=== PATIENT | male | born 1965 | race Two or more races ===

== ENCOUNTER 2021-01-30 19:42 | Emergency (ER) | payer OTHER ==
[~2021-01-30] VITALS: Ht 172.7 cm; Wt 86.2 kg
[2021-01-30 20:15] LABS: BASOPHILS # (AUTO) 0.2 /CMM (0.0-0.2); BASOPHILS % (AUTO) 2.1 % (0.0-2.0); EOSINOPHILS % (AUTO) 1.8 % (0.0-6.0); HEMATOCRIT 46 % (39-51); HEMOGLOBIN 15.6 g/dL (13.5-17.5); LYMPHOCYTES # (AUTO) 3.6 /CMM (0.8-4.8); LYMPHOCYTES % (AUTO) 44.2 % (20.0-44.0); MEAN CORPUSCULAR HGB CONC 34 g/dl (31.0-36.0); MEAN CORPUSCULAR VOLUME 88 fL (80-96); MONOCYTES # (AUTO) 0.5 /CMM (0.1-1.30); MONOCYTES % (AUTO) 5.7 % (2.0-12.0); NEUTROPHILS # (AUTO) 3.8 /CMM (1.8-8.9); NEUTROPHILS % (AUTO) 46.2 % (43.0-81.0); PLATELET COUNT (AUTO) 265 /CMM (150-450); WHITE BLOOD COUNT (AUTO) 8.2 K/uL (4.3-11.0)
--- NOTE | 2021-01-30 20:15 | NUR ---
BIBRA. TO ER BED 7. AAOX4. NOT IN RESP DISTRESS, BRETHING EVENA ND UNLABORED. BROUGHT IN FOR PALPITATION. PT REPROT FEELING OF RAPID HEART BEAT WITH OCCACIONAL SKIP BEATS. DENIES ANY CHEST PAIN. PT REPROTS DRIKING ALCOHOL PRIOR TO PALPITATION STARTED. PROVIDER WAS AT THE BEDSIDE FOR EVAL. ORDERS RECEIVED, NOTED AND CARRIED OUT. IV LINE ESTABLISHED ON THE L AC 18G, BLOOD DRAWN AND GIVEN TO PHLEB AT BEDSIDE. PT ON MONITOR.
[2021-01-30 20:24] LABS: CALCIUM, SERUM 8.2 mg/dL (8.5-10.1); CARBON DIOXIDE 27 mmol/L (21-32); CHLORIDE 108 mmol/L (98-107); GLUCOSE 91 mg/dL (74-106); POTASSIUM 3.6 mmol/L (3.5-5.1); SODIUM SERUM 146 mmol/L (136-145); UREA NITROGEN, BLOOD 14 mg/dL (7-18)
--- NOTE | 2021-01-30 21:00 | NUR ---
SPOKE WITH PIY[place] PT'S MOTHER. SHE WILL BE PICKING UP HER SON WITHIN THE NEXT 30MIN.
--- NOTE | 2021-01-30 21:37 | NUR ---
Shavonne [phone] - Will be picking up opt in 1.5 hours
[2021-01-30] MEDS ORDERED: LORAZEPAM INJ 2 MG/ML VIAL IM ONE (22:00)
--- NOTE | 2021-01-30 22:00 | NUR ---
NIRMAL ROMERO TALKING TO PT'S MOTHER.
--- NOTE | 2021-01-30 22:05 | NUR ---
PT IS CALM AND RESTING IN BED AT THIS TIME. PROVIDER ORDERED TO HOLD ATIVAN UNLESS PT GET AGITATED.
--- NOTE | 2021-01-30 23:00 | NUR ---
Patient discharged to home in stable condition. Written and verbal after care instructions given. Patient verbalizes understanding of instruction.IV removed. Catheter intact and site benign. Pressure and 4x4 applied to site. No bleeding noted. Pt ambulatory with a steady gait
--- NOTE | 2021-01-30 23:00 | NUR ---
pt is released and picked up by pt's mother, Mary.
[2021-01-30 23:36] VITALS: BP 143/85
== END 2021-01-30 23:00 | disposition home or self-care (01) ==
LOC: ER 19:48
DX: R07.89 Other chest pain (principal); F10.129 Alcohol abuse with intoxication, unspecified; I10 Essential (primary) hypertension; E78.5 Hyperlipidemia, unspecified; Z60.2 Problems related to living alone; Y90.8 Blood alcohol level of 240 mg/100 ml or more
CPT/HCPCS: 36415; 71045-TC; 80048-TC; 84484-TC; 85025-TC; 85730-TC; G0480

== ENCOUNTER 2022-08-24 17:40 | Emergency (ER) | payer OTHER ==
[~2022-08-24] VITALS: Ht 175.3 cm; Wt 93.0 kg
[~2022-08-24 17:40] MED LIST: IOHEXOL-300 100 ML VIAL IV ONE
--- NOTE | 2022-08-24 18:01 | NUR ---
TO ER BED 14. BIBRA 40 FOUND SLEEPING IN HIS CARE WITH STRONG SMELL OF ALCOHOL. PT HAS UNSTEADY GATE WHEN AMBULATING PER EMS. BLOOD GLUCOSE 113 [employer]ESS[employer]. VITALS ARE WITHIN NORMAL LIMITS. AWAITING MD ORDERS.
--- NOTE | 2022-08-24 18:59 | NUR ---
PT IS MEDICALLY CLEARED. [facility].
[2022-08-24 19:01] VITALS: BP 138/75
== END 2022-08-24 19:01 ==
LOC: ER 17:43
DX: F10.129 Alcohol abuse with intoxication, unspecified (principal); I10 Essential (primary) hypertension; Z60.2 Problems related to living alone; Y90.9 Presence of alcohol in blood, level not specified
CPT/HCPCS: Q9967